=== PATIENT | male | born 2000 | race Caucasian/White ===

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

== ENCOUNTER 2021-07-09 19:39 | Emergency (ER) | payer OTHER, SELFPAY ==
[2021-07-09 19:50] VITALS: BP 116/60; PULSE 77; RESP 14; TEMP 36.7; O2SAT 99; BMI 18.8
[2021-07-09 20:07] LABS: Apearance,Urine Clear (Clear); Bilirubin,Urine Negative (Negative); Blood, Urine Negative (Negative); Color,Urine Dark Yellow (Yellow); Glucose,Urine (UA) Negative (Negative); Ketones,Urine Negative (Negative); PH,Urine 7.5 (5.0-8.5); Protein,Urine Negative (Negative); Specific Gravity, Urine 1.025 (1.005-1.030); UTC Leukocyte Esterase,Urine Trace (Negative); Urobilinogen,Urine 0.2 EU/dl (0.2)
[2021-07-09 20:08] LABS: UTC Nitrate,Urine Negative (Negative)
--- NOTE | 2021-07-09 20:13 | HMH.EDUTC ---
[facility] [place] Disposition Clinical Impression: STD exposure Gastritis Qualifiers: Gastritis type: unspecified gastritis Chronicity: unspecified Gastritis bleeding: without bleeding Qualified Code(s): K29.70 - Gastritis, unspecified, without bleeding Disposition: Home, Self-Care Condition on Discharge: Good Instructions: [place] Diet, DI for Gastritis, DI for Chlamydia, Azithromycin Additional Instructions: Drink plenty of fluids. Eat a bland diet for the next couple of days to let your stomach rest. Take the medications as directed. Follow up with your regular doctor for any problems. GO TO THE ER FOR ANY WORSENING SYMPTOMS Prescriptions: Ondansetron [Zofran 4mg ODT] 4 mg PO Q8HP PRN #20 tab PRN Reason: Nausea Transmission Status: Pending to [facility] Azithromycin [Azithromycin 500mg Tab] 1,000 mg PO ONCE #1 tab Transmission Status: Pending to [facility] Referrals: Provider,Referral, [Primary Care Provider] - Time of Disposition: 20:23 Medical Decision Making - Medical Records Medical records reviewed: No: I reviewed the patient's medical records. - Kermit Inquiry Pt receiving controlled substance: No Vital Signs: 07/09/21 19:50 Temperature 98.1 F Temperature Source Oral Pulse Rate [Left] 77 Respiratory Rate 14 Blood Pressure [Right Arm] 116/60 Blood Pressure Mean [Right Arm] 78 02 Sat by Pulse Oximetry 99 - Lab Data Lab results reviewed: Yes: I reviewed the patient's lab results. Lab Results 07/09/21 20:02: Urine Color Dark yellow, Urine Appearance Clear, Urine pH 7.5, Ur Specific [place] 1.025, Urine Protein Negative, Urine Glucose (UA) Negative, Urine Ketones Negative, Urine Blood Negative, Urine Nitrate Negative, Urine Bilirubin Negative, Urine Urobilinogen 0.2, Ur Leukocyte Esterase Trace [facility] [place] HPI - General Stated complaint: v/d stomach pain Time Seen by Provider: 07/09/21 20:13 Mode of Arrival: Ambulatory Source of Information: Patient Limitations: No Limitations Description of Symptoms (Recalled from Triage Doc. by RN): pt states his girlfriend recently found out she was . at the same time she apparently was told she has chlymidia. some type that is natural occuring to some women. pt states he is having abd pain and wants checked for sti's. HEENT Symptoms (Recalled from RN notes): No Resp Symptoms (Recalled from RN notes): No Skin Symptoms (Recalled from RN notes): No MS Symptoms (Recalled from RN notes): No Functional Status (Recalled from RN notes): wnl - History of Present Illness Provider Complaint: He has 2 complaints today. The first one that his girl friend is and she was tested for std's by her agricultural produce packer as part of the normal care and she tested positive for chlamydia. He does not have any symptoms, but he has been having unprotected sex with her. He was told to get himself treated for this. His second complaint is that he has nausea and epigastric pain off and on since yesterday. He denies any fever or chills. He has not had diarrhea, but he has also had some cramping like was going to. - Related Data Previous Rx's Medication Instructions Recorded Azithromycin [Azithromycin 500mg 1,000 mg PO ONCE #1 tab 07/09/21 Tab] Ondansetron [Zofran 4mg ODT] 4 mg PO Q8HP PRN #20 tab 07/09/21 Allergies Allergy/AdvReac Type Severity Reaction Status Date / Time No Known Allergies Allergy Verified 12/24/20 19:55 - Worker's Comp Is this a Worker's Comp case?: No [facility] History - Hepatitis A Screen Drug use history?: No High risk sexual behaviors?: No History of sexually transmitted infection?: No Currently employed?: No Childcare worker?: No Do you have indoor plumbing?: Yes Do you have electricity?: Yes Attestation statement:: This patient has been screened for Hepatitis A risk factors. I have reviewed the patient's past medical history: Yes Medical History: Denies:: Cancer, Chronic
[2021-07-09 20:35] VITALS: BP 149/91; PULSE 96; RESP 18; TEMP 36.6
[2021-07-11 23:30] LABS: Neisseria gonorrhoeae, NAA Negative (Negative)
== END 2021-07-09 20:37 | disposition home or self-care (01) ==
PROVIDERS: Emergency Provider Nurse Practitioner Family
DX: Z20.2 Contact with and (suspected) exposure to infections with a predominantly sexual mode of transmission (principal); K29.70 Gastritis, unspecified, without bleeding
CPT/HCPCS: 81003; 87086; 87491; 87591; 99202; G0463